=== PATIENT | female | born 1955 | race Two or more races ===

== ENCOUNTER 2019-01-13 12:57 | Emergency (ER) | payer OTHER ==
[~2019-01-13] VITALS: Ht 154.9 cm; Wt 68.0 kg
[~2019-01-13 12:57] MED LIST: LEVO5TAB2; PRED5PAK8; SPIR100T4
[2019-01-13 13:41] VITALS: BP 120/71
== END 2019-01-13 15:09 | disposition home or self-care (01) ==
LOC: ER 12:57
DX: S52.572A Other intraarticular fracture of lower end of left radius, initial encounter for closed fracture (principal); W01.198A Fall on same level from slipping, tripping and stumbling with subsequent striking against other object, initial encounter; Z79.899 Other long term (current) drug therapy; Y93.89 Activity, other specified; Y99.8 Other external cause status; Y92.89 Other specified places as the place of occurrence of the external cause
CPT/HCPCS: 73110

== ENCOUNTER → 2020-06-27 | Day surgery (SDC) | payer OTHER ==
[2020-06-22 11:01] LABS: Basophils # (auto) 0.1 10 ^3/uL (0-0.2); Eosinophils # (auto) 0.1 10 ^3/uL (0-0.8); Hematocrit 44.7 % (36.0-46.0); Hemoglobin 15.3 g/dL (12.2-16.2); Lymphocytes # (auto) 1.4 10 ^3/uL (0.4-5.4); Lymphocytes % (auto) 23.6 % (10.0-50.0); Mean Corpuscular Hemoglobin 32.4 pg (28.0-32.0); Mean Corpuscular Hgb Conc. 34.4 g/dL (32.0-36.0); Mean Corpuscular Volume 94.3 fL (80.0-100.0); Monocytes # (auto) 0.5 10 ^3/uL (0-1.3); Monocytes % (auto) 8.4 % (0.0-12.0); Neutrophils # (auto) 3.9 10 ^3/uL (1.6-8.6); Nucleated Red Blood Cells % 0.1 %; Platelet Count (auto) 280 10^3/uL (140-450); Red Blood Cells 4.74 10^6/uL (4.0-5.20); Red Cell Distribution Width 12.8 % (11.8-14.3); White Blood Cell 5.9 10^3/uL (4.4-10.8)
[2020-06-22 11:11] LABS: INR 0.94 (0.9-1.15); Partial Thromboplastin Time 24.2 sec (23.0-31.2)
[~2020-06-27] VITALS: Ht 154.9 cm; Wt 68.0 kg
[~2020-06-27] MED LIST changes: +AZEL0.054 EACHEYE; +DIPH25CA66 PO; -LEVO5TAB2; +PANT40TA2 PO; +PRE5T PO; -PRED5PAK8; +SODIUM CHLORIDE LOCK 10 ML ONE; -SPIR100T4; +SPIR100T4 PO; +[UNRECOGNIZED DRUG - CODE] SC; +[UNRECOGNIZED DRUG - CODE] SC; +diphenhdrAMINE HCL 50 MG/1 ML VL ONE
[2020-06-27] MEDS: MIDAZOLAM HCL 5 MG/ML-1ML VIAL ONE ×3 (13:45→13:58)
[2020-06-27] MEDS: fentaNYL CITRATE 100 MCG/2 ML VL ONE ×3 (13:45→13:58)
[2020-06-27 14:26] VITALS: BP 106/55
== END | disposition home or self-care (01) ==
LOC: GI 12:09
PROVIDERS: ATTEND Internal Medicine Gastroenterology
DX: Z12.11 Encounter for screening for malignant neoplasm of colon (principal); K64.8 Other hemorrhoids; K63.89 Other specified diseases of intestine; K21.9 Gastro-esophageal reflux disease without esophagitis; N18.2 Chronic kidney disease, stage 2 (mild); Z98.890 Other specified postprocedural states; Z79.899 Other long term (current) drug therapy; Z20.828 Contact with and (suspected) exposure to other viral communicable diseases
CPT/HCPCS: 36415; 45378; 85025; 85610; 85730; J1200; J2250; J3010; J7030; U0003; 99152

== ENCOUNTER 2025-07-08 09:17 | Emergency (ER) | payer BC, OTHER ==
[~2025-07-08] VITALS: Ht 154.9 cm; Wt 70.9 kg
[~2025-07-08 09:17] MED LIST changes: -SODIUM CHLORIDE LOCK 10 ML ONE; -diphenhdrAMINE HCL 50 MG/1 ML VL ONE
--- NOTE | 2025-07-08 10:13 | ED.PDOC ---
Musculoskeletal HPI Comments This is a 69-year-old female who comes into the ER with bruising and swelling in her left hand. She states on she was carrying something heavy and by accident smashed her left hand into a pole. Patient states the bruising and swelling has continued that is why she came in. She is able to move her fingers no other injury. Chief Complaint: Upper Extremity Time Seen by MD: 10:11 Primary Care Provider: RYNE Reviewed Notes: Nurses Notes, Medications, Allergies Allergies: Coded Allergies: NO KNOWN ALLERGIES (Unverified , 06/22/20) Home Meds Reported Medications Omalizumab (Xolair) 150 Mg/Ml Inj, 150 MG SC MONTHLY, INJ 06/22/20 Globulin, Immune Sc (Baxalta) (Cuvitru) 10 Gm/50 Ml Britany, 10 GM SC, ML 06/22/20 Diphenhydramine Hcl (Benadryl Allergy) 25 Mg Cap, 1 CAP PO Q6HP PRN for ALLERGIES, #30 CAP 1 Refill 06/22/20 Pantoprazole Sodium Sesquihydr (Protonix) 40 Mg Tab, 40 MG PO DAILY, #30 TAB 06/22/20 Azelastine Hcl (Ophth) (Azelastine Hcl) 0.05 % Willie, 1 DROP EACHEYE BID, #6 ML 2 Refills 06/22/20 Prednisone (Prednisone) 5 Mg Tab, 5 MG PO DAILY, TAB 06/22/20 Spironolactone (Spironolactone) 100 Mg Tab, 1 TAB PO DAILY, #30 TAB 11 Refills 06/22/20 Information Source: Patient Mode of Arrival: Ambulatory Past Medical History PAST MEDICAL HISTORY: Denies Surgical History: Denies all surgeries W[employer] History: Denies all [employer]ING [employer] Hx Family History Family History: Unknown Social History Smoker: Non-Smoker Lives In: Home Musculoskeletal: reports: joint swelling, others (Left hand bruising and pain) All Other Systems: Reviewed and Negative Physical Exam General Appearance: No Apparent Distress, Normal HEENT: Normal ENT Inspection, PERRL/EOMI, Pharynx Normal Neck: Full Range of Motion, Non-Tender, Supple Respiratory: Lungs Clear, No Respiratory Distress, Normal Breath Sounds Cardiovascular: Regular Rate/Rhythm Breast Exam: Deferred Gastrointestinal: Non Tender, Soft Genitalia: Deferred Pelvic: Deferred Rectal: Deferred Extremities: Swelling, Tender, Other (Left hand dorsal aspect with multiple bruises in various stages of healing tender with palpation, small amount of edema) Neurologic: Alert, Normal Affect, Normal Mood Cerebellar Function: NOT DONE Reflexes: NOT DONE Skin: Bruises, Dry, Warm Lymphatic: No Adenopathy Was a procedure done? Was a procedure done?: No Differential Diagnosis EXT Differential Diagnosis: Fracture, Gout X-Ray, Labs, Meds, VS Vital Signs Date Time Temp Pulse Resp B/P (MAP) Pulse Ox O2 Delivery O2 Flow Rate FiO2 07/08/25 10:21 63 18 98 Room Air 07/08/25 10:21 98.0 63 18 127/67 (87) 98 98.0 07/08/25 09:18 97.5 64 18 134/59 95 97.5 X-Ray, Labs, Meds, VS Comment Patient seen and examined by me. Patient does have swelling and bruising of the left hand. I will order x-ray just to make sure she does not have a fracture. I would believe that the swelling and bruising is consistent with a sprain or contusion. Patient will be sent home with anti-inflammatories to help with discomfort I told her bruising will take about two weeks before completely gone. ORDERING PHYSICIAN: PALMIRA COLLINS [employer] PROCEDURE(s): LHAN - L HAND 3V XRAY REASON: trauma ORDER NUMBER(s): [id number], ACCESSION NUMBER(s): [id number] X-ray left hand Technique: AP lateral and oblique views REASON FOR EXAM: trauma INDICATION: trauma FINDINGS: No fractures or dislocations. No erosions or periosteal reaction. Articular surfaces are smooth. Slight narrowing of the distal interphalangeal joints IMPRESSION: 1. No acute bony pathology. Mild degenerative changes Time of 1ST Reevaluation: 11:07 Reevaluation 1ST: Improved Patient Education/Counseling: Diagnosis, Treatment, Prognosis, Need For Follow Up Family Education/Counseling: No Family Present Departure 1 Departure Time of Disposition: 11:07 Impression: Primary Impression: Contusion of left hand, initial encounter Disposition: HOME / SELF CARE / HOMELESS Condition: Good Additional Instructions: X-ray of your hand does not show any broken bones Continue to ice elevate Take Motrin as needed for pain Bruising will take about 10 days before completely gone Limited use of left hand for seven days until healed e-Prescriptions Ibuprofen Micronized (Ibuprofen) 600 Mg Tab 600 MG PO Q6HPRN PRN for 5 Days, #20 TAB Prov: PALMIRA COLLINS 07/08/25 Discharged With: Self Critical Care Note Critical Care Time?: No Stability Stability form required: Yes PALMIRA COLLINS Jul 08, 2025 10:13
[2025-07-08 10:21] VITALS: BP 127/67; PULSE 63; RESP 18; TEMP 98; O2SAT 98
--- NOTE | 2025-07-08 10:53 | DVH ---
X-ray left hand Technique: AP lateral and oblique views REASON FOR EXAM: trauma INDICATION: trauma FINDINGS: No fractures or dislocations. No erosions or periosteal reaction. Articular surfaces are sm ooth. Slight narrowing of the distal interphalangeal joints IMPRESSION: 1. No acute bony pathology. Mild degenerative changes
[2025-07-08] MEDS ORDERED: IBUP1TAB5 PO (11:09)
== END 2025-07-08 11:16 | disposition home or self-care (01) ==
LOC: ER 09:17
DX: S60.222A Contusion of left hand, initial encounter (principal); Z79.899 Other long term (current) drug therapy; Z79.52 Long term (current) use of systemic steroids; W23.1XXA Caught, crushed, jammed, or pinched between stationary objects, initial encounter; Y93.89 Activity, other specified; Y92.89 Other specified places as the place of occurrence of the external cause; Y99.8 Other external cause status
CPT/HCPCS: 73130